=== PATIENT | male | born 1995 | race American Indian/Alaskan Native ===

== ENCOUNTER 2017-02-02 11:22 | Day surgery (SDC) | payer MEDICAID ==
[2017-02-02] MEDS ORDERED: NACL 0.9% 1000 ML 1,000 ML IV SCH (12:00)
--- NOTE | 2017-02-02 12:21 | Anesthesia Consultation ---
Anesthesia Consult and Med Hx Date of service: 02/02/17 - Airway Anesthetic Teeth Evaluation: Good ROM Head & Neck: Adequate Mental/Hyoid Distance: Adequate Mallampati Class: Class II Intubation Access Assessment: Probably Good - Pre-Operative Health Status ASA Pre-Surgery Classification: ASA2 Proposed Anesthetic Plan: MAC - Central Nervous System Hx Psychiatric Problems: Yes (autism, schizophrenia)
--- NOTE | 2017-02-02 12:21 | Anesthesia Day of Surgery ---
Anesthesia Day of Surgery - Day of Surgery Patient Examined: Yes Patient H&P Reviewed: Yes Patient is NPO: Yes
--- NOTE | 2017-02-02 12:30 | History and Physical Report ---
History of Present Illness Date of examination: 02/02/17 Date of admission: 02/02/2017 Chief complaint: Epigastric pain and nausea vomiting gastroesophageal reflux disease. History of present illness: 1-year-old male who presents with history of persistent nausea vomiting epigastric pain recurrent indigestion or heartburn. He now presents for endoscopic assessment. Past History Past Medical History: GERD Past Surgical History: No surgical history Social history: denies: smoking, alcohol abuse Family history: hypertension Medications and Allergies Allergies Allergy/AdvReac Type Severity Reaction Status Date / Time divalproex sodium AdvReac Unknown Verified 02/02/17 11:46 [From Depakote] risperidone [From Risperdal] AdvReac Unknown Verified 12/28/15 02:40 Home Medications Medication Instructions Recorded Confirmed Last Taken Type Ziprasidone HCl [Geodon] 40 mg PO QHS 12/28/15 12/28/15 12/27/15 History Active Meds: Active Medications Sodium Chloride (Nacl 0.9% 1000 Ml) 1,000 mls @ 50 mls/hr IV DIRECT LEON Last Admin: 02/02/17 12:24 Dose: 50 mls/hr Review of Systems All systems: negative Exam - Constitutional Vitals: Temp Pulse Resp BP Pulse Ox 98.8 F 83 20 136/85 96 02/02/17 12:17 02/02/17 12:17 02/02/17 12:17 02/02/17 12:17 02/02/17 12:17 General appearance: Present: no acute distress, well-nourished - EENT Eyes: Present: PERRL ENT: hearing intact, clear oral mucosa - Neck Neck: Present: supple, normal ROM - Respiratory Respiratory effort: normal Respiratory: bilateral: CTA - Cardiovascular Heart Sounds: Present: S1 & S2. Absent: rub, click - Extremities Extremities: pulses symmetrical, No edema Peripheral Pulses: within normal limits - Abdominal General gastrointestinal: Present: soft, non-tender, non-distended, normal bowel sounds Male genitourinary: Present: normal - Integumentary Integumentary: Present: clear, warm, dry - Musculoskeletal Musculoskeletal: gait normal, strength equal bilaterally - Psychiatric Psychiatric: appropriate mood/affect, intact judgment & insight - Neurologic Neurologic: CNII-XII intact, moves all extremities Assessment and Plan Gastric pain, nausea vomiting gastroesophageal reflux disease. Plan: Upper endoscopy.
--- NOTE | 2017-02-02 12:32 | Operative Report ---
Operative Report Operative Report: Date of procedure: 02/02/2017 Procedure: Esophagogastroduodenoscopy with multiple mucosal biopsies. Attending physician: Gordon Ferrera MD Furnace Repairer: Gordon Ferrera MD Indication: Since a 21-year-old male who presents history of persistent epigastric pain and nausea vomiting indigestion and heartburn. An upper endoscopy is done to evaluate patient so treatment may be directed based on the findings. Consent: Informed consent was obtained after advising the patient and family regarding nature of this procedure, its indications, potential benefits as well as possible complications including but not limited to bleeding perforation and adverse reaction to medication, infection as well as other cardiopulmonary complications. An informed written and verbal consent was then obtained after due opportunity was provided for questions and answers. Monitoring: Patient was monitored continuously with pulse oximetry and electrocardiographic recordings as well as blood pressure recordings. Vital signs remained stable throughout this procedure with no untoward events. Preoperative assessment: Patient was assessed immediately prior to this procedure for capacity to tolerate monitored anesthesia care and moderate sedation as well as general anesthesia. Patient's ASA classification is 2, Mallampati class is 2, Hyomental distance is 3. Instrument: [employer] video endoscope Medications: Propofol given intravenously in divided doses. For details please potential records. Description of procedure: Patient was placed in the left lateral decubitus position after achieving sedation, the endoscope was introduced into the esophagus under direct vision. It was then advanced beyond the esophagus into the stomach and then beyond the stomach into the duodenum and to the second portion of the duodenum. It was subsequently withdrawn with careful inspection of all mucosal surfaces with the following findings. Findings: Patient has mild erosive esophagitis involving the distal esophagus. There was a diminutive hiatal hernia seen on entry into the stomach. Biopsies were obtained from the gastric antrum because of gastric antral erythema which was noted in the antrum. The duodenum was normal to second portion. Impression: As erosive esophagitis. Diminutive hiatal hernia. Gastric antral erythema status post biopsies. Plan: Follow pathology report. Continue current medications. Additional steps will be taken depending on the pathology report
[2017-02-02] MEDS ORDERED: WATER FOR IRRIG STERILE IR ONE (12:53)
[2017-02-02] MEDS ORDERED: DIPRIVAN 10 MG/ML IV ONE (13:01)
[2017-02-02 13:26] VITALS: BP 149/94
--- NOTE | 2017-02-02 15:45 | Post Anesthesia Evaluation ---
- Post Anesthesia Evaluation Patient Participated: Yes Airway Patent: Yes Stable Respiratory Function: Yes Nausea/Vomiting: No Temp > 96.8F: Yes Pain Manageable: Yes Adequeate Hydration: Yes Anesthesia Complications: No
== END 2017-02-02 11:23 | disposition home or self-care (01) ==
LOC: GIO 11:22
PROVIDERS: ATTEND Internal Medicine Gastroenterology
DX: K21.0 Gastro-esophageal reflux disease with esophagitis (principal); K44.9 Diaphragmatic hernia without obstruction or gangrene; F84.0 Autistic disorder; F20.9 Schizophrenia, unspecified; Z79.899 Other long term (current) drug therapy; Z88.8 Allergy status to other drugs, medicaments and biological substances; Z82.49 Family history of ischemic heart disease and other diseases of the circulatory system
CPT/HCPCS: 43239; 88305; 88342; J2704; J7030

== ENCOUNTER 2017-03-05 11:44 | Day surgery (SDC) | payer MEDICAID ==
--- NOTE | 2017-03-05 14:28 | Anesthesia Consultation ---
Anesthesia Consult and Med Hx Date of service: 03/05/17 - Airway Anesthetic Teeth Evaluation: Good ROM Head & Neck: Adequate Mental/Hyoid Distance: Adequate Mallampati Class: Class III Intubation Access Assessment: Possibly Difficult - Pulmonary Exam CTA: Yes - Cardiac Exam Cardiac Exam: RRR - Pre-Operative Health Status ASA Pre-Surgery Classification: ASA3 Proposed Anesthetic Plan: MAC - Central Nervous System Hx Psychiatric Problems: Yes (autism, schizophrenia) - Other Systems Hx Obesity: Yes
--- NOTE | 2017-03-05 14:29 | Anesthesia Day of Surgery ---
Anesthesia Day of Surgery - Day of Surgery Patient Examined: Yes Patient H&P Reviewed: Yes Patient is NPO: Yes
[2017-03-05] MEDS ORDERED: NACL 0.9% 1000 ML 1,000 ML IV SCH (15:00)
--- NOTE | 2017-03-05 15:15 | History and Physical Report ---
History of Present Illness Date of examination: 03/05/17 Date of admission: 03/05/2017 Chief complaint: Abdominal pain, diarrhea History of present illness: 21-year-old male who presents history of recurrent abdominal pain and diarrhea. Patient presents for evaluation with a colonoscopy. Past History Past Medical History: No medical history, other (autism) Past Surgical History: No surgical history Social history: denies: smoking, alcohol abuse Family history: no significant family history Medications and Allergies Allergies Allergy/AdvReac Type Severity Reaction Status Date / Time divalproex sodium AdvReac Unknown Verified 02/02/17 11:46 [From Depakote] risperidone [From Risperdal] AdvReac Unknown Verified 12/28/15 02:40 Home Medications Medication Instructions Recorded Confirmed Last Taken Type Ziprasidone HCl [Geodon] 40 mg PO QHS 12/28/15 03/05/17 12/27/15 History Abilify TAB 10 ml PO BID 03/05/17 03/05/17 03/03/17 History Active Meds: Active Medications Sodium Chloride (Nacl 0.9% 1000 Ml) 1,000 mls @ 50 mls/hr IV DIRECT LEON Last Admin: 03/05/17 15:07 Dose: 50 mls/hr Review of Systems All systems: negative Exam - Constitutional Vitals: Temp Pulse Resp BP Pulse Ox 97.9 F 83 18 151/92 97 03/05/17 14:55 03/05/17 14:55 03/05/17 14:55 03/05/17 14:55 03/05/17 14:55 General appearance: Present: no acute distress, well-nourished - EENT Eyes: Present: PERRL ENT: hearing intact, clear oral mucosa - Neck Neck: Present: supple, normal ROM - Respiratory Respiratory effort: normal Respiratory: bilateral: CTA - Cardiovascular Heart Sounds: Present: S1 & S2. Absent: rub, click - Extremities Extremities: pulses symmetrical, No edema Peripheral Pulses: within normal limits - Abdominal General gastrointestinal: Present: soft, non-tender, non-distended, normal bowel sounds Male genitourinary: Present: normal - Integumentary Integumentary: Present: clear, warm, dry - Musculoskeletal Musculoskeletal: gait normal, strength equal bilaterally - Psychiatric Psychiatric: appropriate mood/affect, intact judgment & insight - Neurologic Neurologic: CNII-XII intact, moves all extremities Assessment and Plan Abdominal pain, diarrhea. Plan full colonoscopy.
--- NOTE | 2017-03-05 15:16 | Operative Report ---
Operative Report Operative Report: Date of procedure: 03/05/2017 Procedure: Flexible Sigmoidoscopy with Cold Biopsies of the colon. Attending physician: Gordon Ferrera MD Television Installer: Gordon Ferrera MD Indication: Patient is a 21-year-old male who presents with history of diffuse abdominal pain and chronic diarrhea. A sigmoidoscopy serves to evaluate patient so that treatment may be directed based on the findings. Consent: Informed consent was obtained after advising the patient and family regarding nature of this procedure, its indications, potential benefits as well as possible complications including but not limited to bleeding perforation and adverse reaction to medication, infection as well as other cardiopulmonary complications. An informed written and verbal consent was then obtained after due opportunity was provided for questions and answers. Monitoring: Patient was monitored continuously with pulse oximetry and electrocardiographic recordings as well as blood pressure recordings. Vital signs remained stable throughout this procedure with no untoward events. Preoperative assessment: Patient was assessed immediately prior to this procedure for capacity to tolerate monitored anesthesia care and moderate sedation as well as general anesthesia. Patient's ASA classification is 2, Mallampati class is 2, Hyomental distance is 3. Instrument: [employer] video colonoscope Medications: Propofol given intravenously in divided doses. For details please refer to anesthesia records. Description of procedure: Patient was placed in the left lateral decubitus position after achieving sedation, a digital rectal examination was performed following which the sigmoidoscope was introduced into the anal verge and advanced to the descending colon. It was subsequently withdrawn with careful inspection of all mucosal surfaces. Patient tolerated this procedure well and was subsequently taken to the recovery room. The following findings were noted. Findings: The entirety of the colon to the descending colon was normal. Biopsies of the sigmoid colon were obtained for histopathology. On the retroflex view at the anal verge, patient had internal hemorrhoids. Impression: Normal sigmoidoscopy. Internal hemorrhoids. Plan: To follow pathology report and direct additional treatment based on the pathology report.
[2017-03-05] MEDS ORDERED: XYLOCAINE MPF 2% ONE (15:30)
[2017-03-05] MEDS ORDERED: DIPRIVAN 10 MG/ML IV ONE ×3 (16:00→17:13)
[2017-03-05] MEDS ORDERED: NORMODYNE IV ONE (17:11)
--- NOTE | 2017-03-05 17:48 | Discharge Summary ---
Short Stay Discharge Plan Activity: advance as tolerated Weight Bearing Status: Weight Bear as Tolerated Diet: regular Additional Instructions: Post Sedation D/C Instructions When you return home you may resume your regular diet unless otherwise directed. -Go directly home from the hospital and rest quietly. You may resume normal activities tomorrow. Do NOT drive, return to work, operate any machinery or make any important personal or business decisions today. -Do NOT drink any alcohol or take nerve or sleeping drugs. They add to the effects of the medicine still present in your body. Follow up with: KATHRYN CONTRERAS MD [Primary Care Provider] - 7 Days
[2017-03-05 18:20] VITALS: BP 148/101
== END 2017-03-05 11:45 | disposition home or self-care (01) ==
LOC: GIO 11:44
PROVIDERS: ATTEND Internal Medicine Gastroenterology
DX: K64.8 Other hemorrhoids (principal); F84.0 Autistic disorder; F20.9 Schizophrenia, unspecified; E66.9 Obesity, unspecified; Z68.38 Body mass index [BMI] 38.0-38.9, adult; Z88.8 Allergy status to other drugs, medicaments and biological substances; Z79.899 Other long term (current) drug therapy
CPT/HCPCS: 45331; 88305; J2704; J7030